=== PATIENT | female | born 1955 | race African-American/Black ===

== ENCOUNTER 2017-07-06 12:24 | Inpatient (IN) | payer MEDICAID ==
[~2017-07-06] VITALS: Ht 165.1 cm; Wt 46.2 kg
[2017-07-06] MEDS ORDERED: KETOROLAC 30 MG/1 ML ONE (12:57)
[2017-07-06 12:59] LABS: MEAN CORPUSCULAR HEMOGLOBIN 29.6 pg (27.0-34.8); MEAN CORPUSCULAR HGB CONC 32.6 g/dL (32.4-35.8); MEAN CORPUSCULAR VOLUME 90.8 fL (80-100); MEAN PLATELET VOLUME 8.4 fL (7.4-10.4); PLATELET COUNT 372 x10^3/uL (130-400); RED BLOOD COUNT 5.33 x10^6/uL (3.82-5.3); RED CELL DISTRIBUTION WIDTH 15.9 % (9.6-15.2)
[2017-07-06] MEDS ORDERED: ALBUTEROL/IPRATROPIUM 2.5MG/0.5MG, 3 ML NPPB ONE (13:00)
[2017-07-06] MEDS ORDERED: SODIUM CHLORIDE FLUSH 10ML SYR IVF ONE (13:00)
[2017-07-06] MEDS ORDERED: KETOROLAC 30 MG/1 ML IVPush ONE (13:00)
[2017-07-06 13:08] LABS: ALBUMIN 3.9 g/dL (3.4-5.0); CHLORIDE 98 mmol/L (98-107)
[2017-07-06 13:10] LABS: ANION GAP 8 mmol/L (5-15); CALCIUM 9.1 mg/dL (8.5-10.1)
[2017-07-06] MEDS ORDERED: ALBUTEROL/IPRATROPIUM 2.5MG/0.5MG, 3 ML ONE (13:13)
[2017-07-06 13:18] LABS: CREATININE 0.59 mg/dL (0.55-1.02)
[2017-07-06 13:20] LABS: TROPONIN I 0.147 ng/mL (0.000-0.045)
[2017-07-06] MEDS ORDERED: ATEN-104 PO (13:20)
[2017-07-06] MEDS ORDERED: AMLO5TAB2 PO (13:20)
[2017-07-06] MEDS ORDERED: BECL8.7A7 INH (13:20)
[2017-07-06] MEDS ORDERED: TIOT18CA INH (13:20)
[2017-07-06] MEDS ORDERED: MONT10TA9 PO (13:20)
[2017-07-06] MEDS ORDERED: ENAL20TA PO (13:20)
[2017-07-06 13:22] LABS: BASOPHILS % (AUTO) 1 % (0-1); EOSINOPHILS # (AUTO) 0.06 x10^3/uL (0-0.4); EOSINOPHILS % (AUTO) 0 % (1-7); LYMPHOCYTES # (AUTO) 1.37 x10^3/uL (1-3.4); LYMPHOCYTES % (AUTO) 7 % (22-44); MD SCAN; MONOCYTES % (AUTO) 2 % (2-9); NEUTROPHILS # (AUTO) 16.84 x10^3/uL (1.8-6.8); NEUTROPHILS % (AUTO) 90 % (42-75)
[2017-07-06] MEDS ORDERED: ASPIRIN 325 MG TABLET PO ONE (13:30)
[2017-07-06] MEDS ORDERED: ASPIRIN 325 MG TABLET ONE (13:43)
[2017-07-06] MEDS ORDERED: POTASSIUM CHLORIDE 20 MEQ TAB.ER.PRT PO ONE ×2 (15:00→18:00)
[2017-07-06] MEDS ORDERED: AZITHROMYCIN 500 MG in SODIUM CHLORIDE 0.9% 250 ML IV ONE (16:00)
[2017-07-06] MEDS ORDERED: CEFTRIAXONE PMX 1GM/50ML 50 ML IV ONE (16:00)
[2017-07-06] MEDS ORDERED: morphine SULFATE 10 MG/ML, 1ML IVPush PRN (16:30)
[2017-07-06] MEDS ORDERED: ACETAMINOPHEN 325 MG TABLET PO PRN (16:30)
[2017-07-06] MEDS ORDERED: ONDANSETRON 2MG/ML, 2ML IVPush PRN (16:30)
[2017-07-06] MEDS ORDERED: GUAIFENESIN/DM 200-20MG, 10ML UDC PO PRN (16:30)
[2017-07-06] MEDS ORDERED: ALBUTEROL SULFATE 2.5 MG/3 ML NPPB PRN (16:30)
[2017-07-06] MEDS ORDERED: DOCUSATE 100 MG CAPSULE PO PRN (16:30)
[2017-07-06] MEDS ORDERED: hydrALAzine 20 MG/ML, 1ML IVPush PRN (16:30)
[2017-07-06] MEDS ORDERED: CEFTRIAXONE PMX 1GM/50ML 0 ML ONE (16:54)
[2017-07-06] MEDS ORDERED: POTASSIUM CHLORIDE 20 MEQ TAB.ER.PRT ONE (16:55)
[2017-07-06] MEDS ORDERED: ENOXAPARIN 40 MG/0.4 ML ONE (18:06)
[2017-07-06] MEDS: ENOXAPARIN 40 MG/0.4 ML SQ SCH (18:20)
[2017-07-06 18:24] VITALS: BP 159/89
[2017-07-06] MEDS: ATORVASTATIN 20 MG TABLET PO SCH (20:04)
[2017-07-06] MEDS: NICOTINE 7 MG/24 HR PATCH.TD24 TD SCH (20:04)
[2017-07-06] MEDS: MONTELUKAST 10 MG TABLET PO SCH (20:05)
[2017-07-06] MEDS: OXYcodone IR 5MG TABLET PO PRN (20:14)
[2017-07-06 20:31] VITALS: BP 133/75
[2017-07-06] MEDS: ALBUTEROL/IPRATROPIUM 2.5MG/0.5MG, 3 ML NPPB SCH (21:00)
[2017-07-07 01:24] VITALS: BP 138/79
[2017-07-07] MEDS: ALBUTEROL/IPRATROPIUM 2.5MG/0.5MG, 3 ML NPPB SCH ×4 (03:00→21:38)
[2017-07-07 06:11] LABS: BASOPHILS # (AUTO) 0.13 x10^3/uL (0-0.1); BASOPHILS % (AUTO) 1 % (0-1); EOSINOPHILS % (AUTO) 0 % (1-7); LYMPHOCYTES # (AUTO) 0.99 x10^3/uL (1-3.4); LYMPHOCYTES % (AUTO) 7 % (22-44); MD NO; MEAN CORPUSCULAR HEMOGLOBIN 29.8 pg (27.0-34.8); MEAN CORPUSCULAR HGB CONC 32.9 g/dL (32.4-35.8); MEAN CORPUSCULAR VOLUME 90.7 fL (80-100); MEAN PLATELET VOLUME 9.1 fL (7.4-10.4); MONOCYTES # (AUTO) 0.41 x10^3/uL (0.2-0.8); MONOCYTES % (AUTO) 3 % (2-9); NEUTROPHILS # (AUTO) 12.14 x10^3/uL (1.8-6.8); NEUTROPHILS % (AUTO) 89 % (42-75); PLATELET COUNT 333 x10^3/uL (130-400); RED BLOOD COUNT 4.59 x10^6/uL (3.82-5.3); RED CELL DISTRIBUTION WIDTH 16.7 % (9.6-15.2)
[2017-07-07 06:25] LABS: ANION GAP 7 mmol/L (5-15); CALCIUM 8.6 mg/dL (8.5-10.1); CHLORIDE 107 mmol/L (98-107)
[2017-07-07 06:32] LABS: CHOL/HDL RATIO 1.8; CHOLESTEROL, TOTAL 143 mg/dL (140-239); CREATININE 0.77 mg/dL (0.55-1.02); HDL CHOL % 55 % (28-40); HDL CHOLESTEROL (DIRECT) 79 mg/dL (40-60); LDL CHOLESTEROL,CALCULATED 49 mg/dL (54-169); LDL/HDL RATIO 0.6 (0.5-3.0); TRIGLYCERIDES 77 mg/dL (50-200); VLDL CHOLESTEROL 15 mg/dL (0-25)
[2017-07-07 07:02] VITALS: BP 151/71
[2017-07-07] MEDS: ENALAPRIL 20MG TABLET PO SCH (09:00)
[2017-07-07] MEDS: ATENOLOL 50 MG TABLET PO SCH (09:00)
[2017-07-07] MEDS ORDERED: IPRATROPIUM 0.5 MG/2.5 ML INHA NPPB SCH (09:00)
[2017-07-07] MEDS: FLUTICASONE FUROATE 200MCG/INH INH SCH (09:00)
[2017-07-07] MEDS: AMLODIPINE 5 MG TABLET PO SCH (09:00)
[2017-07-07] MEDS: ASPIRIN 81 MG TABLET EC PO SCH (11:09)
[2017-07-07] MEDS: AZITHROMYCIN 500 MG TABLET PO SCH (11:09)
[2017-07-07 13:10] VITALS: BP 142/81
[2017-07-07] MEDS: ENOXAPARIN 40 MG/0.4 ML SQ SCH (16:20)
[2017-07-07] MEDS: NICOTINE 7 MG/24 HR PATCH.TD24 TD SCH (16:20)
[2017-07-07] MEDS: MONTELUKAST 10 MG TABLET PO SCH (20:21)
[2017-07-07] MEDS: ATORVASTATIN 20 MG TABLET PO SCH (20:21)
[2017-07-07 20:59] VITALS: BP 130/74
[2017-07-07] MEDS: OXYcodone IR 5MG TABLET PO PRN (22:12)
[2017-07-08 00:50] VITALS: BP 134/73
[2017-07-08 05:59] LABS: ANION GAP 8 mmol/L (5-15); CALCIUM 8.4 mg/dL (8.5-10.1); CHLORIDE 105 mmol/L (98-107)
[2017-07-08] MEDS ORDERED: ALBUTEROL/IPRATROPIUM 2.5MG/0.5MG, 3 ML NPPB SCH (06:00)
[2017-07-08 06:02] LABS: TROPONIN I 0.072 ng/mL (0.000-0.045)
[2017-07-08 06:03] LABS: CREATININE 0.94 mg/dL (0.55-1.02)
[2017-07-08] MEDS: ASPIRIN 81 MG TABLET EC PO SCH (06:17)
[2017-07-08 07:22] VITALS: BP 133/75
[2017-07-08] MEDS: AZITHROMYCIN 500 MG TABLET PO SCH (08:51)
[2017-07-08] MEDS: ENALAPRIL 20MG TABLET PO SCH (08:52)
[2017-07-08] MEDS: AMLODIPINE 5 MG TABLET PO SCH (08:52)
[2017-07-08] MEDS: ATENOLOL 50 MG TABLET PO SCH (08:52)
[2017-07-08] MEDS: FLUTICASONE FUROATE 200MCG/INH INH SCH (09:00)
[2017-07-08] MEDS ORDERED: ONDANSETRON ODT 4 MG ONE (11:45)
[2017-07-08 12:42] VITALS: BP 129/66
[2017-07-08] MEDS ORDERED: PRED20TA PO (16:30)
[2017-07-08] MEDS ORDERED: AZIT500T5 PO (16:30)
[2017-07-08] MEDS ORDERED: ASPI-621 PO (16:30)
[2017-07-08] MEDS ORDERED: ATOR20TA9 PO (16:30)
[2017-07-08] MEDS ORDERED: ALBU18HF INH (16:32)
== END 2017-07-08 18:20 | disposition home or self-care (01) | DRG 191 ==
LOC: ED 12:48 → EDIP 16:05 → 5SO 17:44
PROVIDERS: ADMIT Internal Medicine; ATTEND Internal Medicine
DX: J44.0 Chronic obstructive pulmonary disease with (acute) lower respiratory infection (principal); I24.8 Other forms of acute ischemic heart disease; I07.1 Rheumatic tricuspid insufficiency; J44.1 Chronic obstructive pulmonary disease with (acute) exacerbation; E11.9 Type 2 diabetes mellitus without complications; E87.6 Hypokalemia; I25.10 Atherosclerotic heart disease of native coronary artery without angina pectoris; F17.210 Nicotine dependence, cigarettes, uncomplicated; I10 Essential (primary) hypertension; I35.1 Nonrheumatic aortic (valve) insufficiency; M19.90 Unspecified osteoarthritis, unspecified site; J20.9 Acute bronchitis, unspecified; Z59.0 Homelessness; Z79.82 Long term (current) use of aspirin; I25.2 Old myocardial infarction; Z79.899 Other long term (current) drug therapy; Z83.2 Family history of diseases of the blood and blood-forming organs and certain disorders involving the immune mechanism; Z83.3 Family history of diabetes mellitus; Z86.718 Personal history of other venous thrombosis and embolism
CPT/HCPCS: 36415; 71045; 80048; 80061; 82040; 83735; 84100; 84484; 85025; 87040; 93005; 93306; 94640; 96374; J0456; J0696; J1650; J1885; J2405; J7620; J7050; J7512

== ENCOUNTER 2017-07-19 17:43 | Inpatient (IN) | payer MEDICAID ==
[~2017-07-19] VITALS: Ht 165.1 cm; Wt 54.8 kg
[~2017-07-19 17:43] MED LIST: ALBU18HF INH; AMLO5TAB2 PO; ASPI-621 PO; ATEN-104 PO; ATOR20TA9 PO; AZIT500T5 PO; BECL8.7A7 INH; ENAL20TA PO; MONT10TA9 PO; PRED20TA PO; TIOT18CA INH
[2017-07-19] MEDS ORDERED: ASPIRIN 81 MG TABLET CHEW PO ONE (18:30)
[2017-07-19 19:47] LABS: BASOPHILS % (AUTO) 0 % (0-1); EOSINOPHILS # (AUTO) 0.01 x10^3/uL (0-0.4); EOSINOPHILS % (AUTO) 0 % (1-7); LYMPHOCYTES # (AUTO) 0.86 x10^3/uL (1-3.4); LYMPHOCYTES % (AUTO) 9 % (22-44); MD NO; MEAN CORPUSCULAR HEMOGLOBIN 29.4 pg (27.0-34.8); MEAN CORPUSCULAR HGB CONC 32.5 g/dL (32.4-35.8); MEAN CORPUSCULAR VOLUME 90.2 fL (80-100); MEAN PLATELET VOLUME 8.5 fL (7.4-10.4); MONOCYTES # (AUTO) 0.39 x10^3/uL (0.2-0.8); MONOCYTES % (AUTO) 4 % (2-9); NEUTROPHILS # (AUTO) 7.91 x10^3/uL (1.8-6.8); NEUTROPHILS % (AUTO) 86 % (42-75); PLATELET COUNT 254 x10^3/uL (130-400); RED BLOOD COUNT 4.99 x10^6/uL (3.82-5.3); RED CELL DISTRIBUTION WIDTH 16.6 % (9.6-15.2)
[2017-07-19 20:00] LABS: ALANINE AMINOTRANSFERASE 40 U/L (12-78); ALBUMIN 3.4 g/dL (3.4-5.0); ANION GAP 7 mmol/L (5-15); CALCIUM 8.2 mg/dL (8.5-10.1); CHLORIDE 99 mmol/L (98-107)
[2017-07-19] MEDS ORDERED: ATENOLOL 50 MG TABLET PO ONE (20:00)
[2017-07-19] MEDS ORDERED: LEVOFLOXACIN 750 MG TABLET PO ONE (20:00)
[2017-07-19 20:05] LABS: ALKALINE PHOSPHATASE 52 U/L (45-117); BILIRUBIN,TOTAL 0.4 mg/dL (0.2-1.0); CREATININE 0.78 mg/dL (0.55-1.02); TOTAL PROTEIN 7.3 g/dL (6.4-8.2)
[2017-07-19 20:12] LABS: TROPONIN I 0.171 ng/mL (0.000-0.045)
[2017-07-19] MEDS ORDERED: ASPIRIN 81 MG TABLET CHEW ONE (20:33)
[2017-07-19] MEDS ORDERED: LEVOFLOXACIN 750 MG TABLET ONE (20:33)
[2017-07-19] MEDS ORDERED: ENALAPRIL 20MG TABLET PO ONE (21:00)
[2017-07-19 21:20] VITALS: BP 162/91
[2017-07-20] MEDS ORDERED: SODIUM CHLORIDE 0.9% 1,000 ML IV SCH (00:13)
[2017-07-20 00:29] VITALS: BP 133/78
[2017-07-20] MEDS ORDERED: POLYETHYLENE GLYCOL 17 GM PACKET PO PRN (00:30)
[2017-07-20] MEDS ORDERED: morphine SULFATE 10 MG/ML, 1ML IVPush PRN (00:30)
[2017-07-20] MEDS ORDERED: DOCUSATE 100 MG CAPSULE PO PRN (00:30)
[2017-07-20] MEDS ORDERED: BISACODYL 10 MG SUPP PR PRN (00:30)
[2017-07-20] MEDS ORDERED: ENALAPRILAT 1.25 MG/ML, 2ML IVPush PRN (00:30)
[2017-07-20] MEDS ORDERED: POTASSIUM CHLORIDE 40 MEQ in SODIUM CHLORIDE 0.9% 500 ML IV ONE (00:30)
[2017-07-20] MEDS ORDERED: ONDANSETRON 2MG/ML, 2ML IVPush PRN (00:30)
[2017-07-20] MEDS ORDERED: ACETAMINOPHEN 325 MG TABLET PO PRN (00:30)
[2017-07-20] MEDS ORDERED: hydrALAzine 20 MG/ML, 1ML IVPush PRN (00:30)
[2017-07-20] MEDS: ALBUTEROL/IPRATROPIUM 2.5MG/0.5MG, 3 ML NPPB SCH ×5 (00:39→20:54)
[2017-07-20] MEDS: CEFTRIAXONE PMX 1GM/50ML 50 ML IV SCH (00:52)
[2017-07-20] MEDS: OXYcodone IR 5MG TABLET PO PRN ×2 (01:02→20:35)
[2017-07-20] MEDS: HEPARIN 5,000 UNITS/ML, 1ML SQ SCH ×3 (01:03→14:31)
[2017-07-20 03:23] LABS: TROPONIN I 0.172 ng/mL (0.000-0.045)
[2017-07-20 03:27] LABS: HEMOGLOBIN A1C 6.5 % (4.2-6.3)
[2017-07-20 03:30] LABS: FREE T4 (FREE THYROXINE) 1.22 ng/dL (0.76-1.46); THYROID STIMULATING HORMONE 0.021 mIU/L (0.358-3.740)
[2017-07-20] MEDS: ASPIRIN 325 MG TABLET EC PO SCH (05:30)
[2017-07-20 05:49] LABS: MICROSCOPIC AUTO
[2017-07-20 05:53] LABS: CULTURE INDICATED? NO
[2017-07-20 07:46] VITALS: BP 153/85
[2017-07-20] MEDS ORDERED: POTASSIUM CHLORIDE 20 MEQ TAB.ER.PRT PO ONE (08:00)
[2017-07-20] MEDS: AMLODIPINE 5 MG TABLET PO SCH (08:22)
[2017-07-20] MEDS: ENALAPRIL 20MG TABLET PO SCH (08:22)
[2017-07-20] MEDS: ATENOLOL 50 MG TABLET PO SCH (08:23)
[2017-07-20] MEDS: FLUTICASONE/VILANTEROL 200-25MCG/INH INH SCH (08:23)
[2017-07-20] MEDS: DOXYCYCLINE 100MG TABLET PO SCH ×2 (08:23→20:23)
[2017-07-20] MEDS ORDERED: REGADENOSON 0.4 MG/5 ML SYRINGE ONE (08:55)
[2017-07-20 09:27] LABS: TROPONIN I 0.166 ng/mL (0.000-0.045)
[2017-07-20 12:30] VITALS: BP 128/76
[2017-07-20] MEDS: methylPREDNISolone SOD SUCC 125 MG/2 ML IVPush SCH ×2 (14:30→20:23)
[2017-07-20 18:37] VITALS: BP 141/75
[2017-07-20] MEDS: MONTELUKAST 10 MG TABLET PO SCH (20:23)
[2017-07-20] MEDS: ATORVASTATIN 20 MG TABLET PO SCH (20:23)
[2017-07-21] MEDS: HEPARIN 5,000 UNITS/ML, 1ML SQ SCH ×3 (00:15→18:40)
[2017-07-21] MEDS: CEFTRIAXONE PMX 1GM/50ML 50 ML IV SCH (00:15)
[2017-07-21 00:58] VITALS: BP 122/71
[2017-07-21] MEDS: methylPREDNISolone SOD SUCC 125 MG/2 ML IVPush SCH ×4 (03:11→20:17)
[2017-07-21 05:03] LABS: BASOPHILS % (AUTO) 0 % (0-1); EOSINOPHILS % (AUTO) 0 % (1-7); LYMPHOCYTES # (AUTO) 0.45 x10^3/uL (1-3.4); LYMPHOCYTES % (AUTO) 12 % (22-44); MD NO; MEAN CORPUSCULAR HEMOGLOBIN 29.9 pg (27.0-34.8); MEAN CORPUSCULAR HGB CONC 33.1 g/dL (32.4-35.8); MEAN CORPUSCULAR VOLUME 90.3 fL (80-100); MEAN PLATELET VOLUME 8.8 fL (7.4-10.4); MONOCYTES # (AUTO) 0.13 x10^3/uL (0.2-0.8); MONOCYTES % (AUTO) 3 % (2-9); NEUTROPHILS # (AUTO) 3.14 x10^3/uL (1.8-6.8); NEUTROPHILS % (AUTO) 85 % (42-75); PLATELET COUNT 205 x10^3/uL (130-400); RED BLOOD COUNT 4.12 x10^6/uL (3.82-5.3); RED CELL DISTRIBUTION WIDTH 16.9 % (9.6-15.2)
[2017-07-21 05:12] LABS: ALBUMIN 2.5 g/dL (3.4-5.0); ANION GAP 10 mmol/L (5-15); CHLORIDE 104 mmol/L (98-107)
[2017-07-21 05:18] LABS: ALANINE AMINOTRANSFERASE 27 U/L (12-78); ALKALINE PHOSPHATASE 39 U/L (45-117); BILIRUBIN,TOTAL 0.1 mg/dL (0.2-1.0); CALCIUM 7.9 mg/dL (8.5-10.1); CHOL/HDL RATIO 1.9; CHOLESTEROL, TOTAL 148 mg/dL (140-239); CREATININE 0.82 mg/dL (0.55-1.02); HDL CHOL % 53 % (28-40); HDL CHOLESTEROL (DIRECT) 79 mg/dL (40-60); LDL CHOLESTEROL,CALCULATED 56 mg/dL (54-169); LDL/HDL RATIO 0.7 (0.5-3.0); TOTAL PROTEIN 5.9 g/dL (6.4-8.2); TRIGLYCERIDES 66 mg/dL (50-200); VLDL CHOLESTEROL 13 mg/dL (0-25)
[2017-07-21] MEDS: ASPIRIN 325 MG TABLET EC PO SCH (05:23)
[2017-07-21 06:46] VITALS: BP 151/77
[2017-07-21] MEDS: ENALAPRIL 20MG TABLET PO SCH (09:18)
[2017-07-21] MEDS: AMLODIPINE 5 MG TABLET PO SCH (09:18)
[2017-07-21] MEDS: DOXYCYCLINE 100MG TABLET PO SCH ×2 (09:18→20:17)
[2017-07-21] MEDS: ATENOLOL 50 MG TABLET PO SCH (09:18)
[2017-07-21] MEDS: ALBUTEROL/IPRATROPIUM 2.5MG/0.5MG, 3 ML NPPB SCH ×3 (09:48→20:25)
[2017-07-21] MEDS: NICOTINE 21 MG/24 HR PATCH.TD24 TD SCH (10:32)
[2017-07-21] MEDS: FLUTICASONE/VILANTEROL 200-25MCG/INH INH SCH (10:32)
[2017-07-21 14:32] VITALS: BP 143/77
[2017-07-21 18:57] VITALS: BP 146/73
[2017-07-21] MEDS: ATORVASTATIN 20 MG TABLET PO SCH (20:17)
[2017-07-21] MEDS: OXYcodone IR 5MG TABLET PO PRN (20:18)
[2017-07-21] MEDS: MONTELUKAST 10 MG TABLET PO SCH (20:18)
[2017-07-22] MEDS: CEFTRIAXONE PMX 1GM/50ML 50 ML IV SCH (00:31)
[2017-07-22] MEDS: HEPARIN 5,000 UNITS/ML, 1ML SQ SCH ×3 (00:32→18:18)
[2017-07-22 00:47] VITALS: BP 158/83
[2017-07-22 02:44] LABS: CLOSTRIDIUM DIFFICILE ANTIGEN NEGATIVE; CLOSTRIDIUM DIFFICILE TOXIN NEGATIVE (Negative)
[2017-07-22] MEDS: methylPREDNISolone SOD SUCC 125 MG/2 ML IVPush SCH ×4 (03:27→20:49)
[2017-07-22] MEDS: ASPIRIN 325 MG TABLET EC PO SCH (06:25)
[2017-07-22] MEDS: ALBUTEROL/IPRATROPIUM 2.5MG/0.5MG, 3 ML NPPB SCH ×3 (06:55→20:32)
[2017-07-22 08:23] VITALS: BP 161/85
[2017-07-22] MEDS: NICOTINE 21 MG/24 HR PATCH.TD24 TD SCH (09:53)
[2017-07-22] MEDS: DOXYCYCLINE 100MG TABLET PO SCH ×2 (09:53→20:49)
[2017-07-22] MEDS: AMLODIPINE 5 MG TABLET PO SCH (09:53)
[2017-07-22] MEDS: OXYcodone IR 5MG TABLET PO PRN ×2 (09:53→16:24)
[2017-07-22] MEDS: ATENOLOL 50 MG TABLET PO SCH (09:53)
[2017-07-22] MEDS: GUAIFENESIN 200 MG TABLET PO SCH ×3 (09:53→20:49)
[2017-07-22] MEDS: ENALAPRIL 20MG TABLET PO SCH (09:53)
[2017-07-22] MEDS ORDERED: PNEUMOCOCCAL 23 VACCINE IM-VACC ONE (11:00)
[2017-07-22] MEDS: FLUTICASONE/VILANTEROL 200-25MCG/INH INH SCH (12:53)
[2017-07-22 13:10] VITALS: BP 153/81
[2017-07-22 20:34] VITALS: BP 139/82
[2017-07-22] MEDS: ATORVASTATIN 20 MG TABLET PO SCH (20:49)
[2017-07-22] MEDS: MONTELUKAST 10 MG TABLET PO SCH (20:49)
[2017-07-23] MEDS: CEFTRIAXONE PMX 1GM/50ML 50 ML IV SCH (00:30)
[2017-07-23 00:36] VITALS: BP 167/88
[2017-07-23] MEDS: HEPARIN 5,000 UNITS/ML, 1ML SQ SCH ×3 (02:00→14:40)
[2017-07-23] MEDS: ALBUTEROL/IPRATROPIUM 2.5MG/0.5MG, 3 ML NPPB SCH ×3 (02:42→11:51)
[2017-07-23] MEDS: methylPREDNISolone SOD SUCC 125 MG/2 ML IVPush SCH ×4 (03:05→20:25)
[2017-07-23] MEDS: NICOTINE 21 MG/24 HR PATCH.TD24 TD SCH (08:14)
[2017-07-23] MEDS: GUAIFENESIN 200 MG TABLET PO SCH ×3 (08:15→20:27)
[2017-07-23] MEDS: ASPIRIN 325 MG TABLET EC PO SCH (08:15)
[2017-07-23] MEDS: FLUTICASONE/VILANTEROL 200-25MCG/INH INH SCH (08:15)
[2017-07-23] MEDS: ATENOLOL 50 MG TABLET PO SCH (08:15)
[2017-07-23] MEDS: ENALAPRIL 20MG TABLET PO SCH (08:15)
[2017-07-23] MEDS: DOXYCYCLINE 100MG TABLET PO SCH ×2 (08:15→20:27)
[2017-07-23] MEDS: AMLODIPINE 5 MG TABLET PO SCH (08:15)
[2017-07-23 08:45] VITALS: BP 157/82
[2017-07-23 11:07] VITALS: BP 158/79
[2017-07-23 14:13] VITALS: BP 164/82
[2017-07-23] MEDS: OXYcodone IR 5MG TABLET PO PRN (16:44)
[2017-07-23 19:20] VITALS: BP 140/75
[2017-07-23] MEDS: ALBUTEROL/IPRATROPIUM 2.5MG/0.5MG, 3 ML NPPB PRN (19:25)
[2017-07-23] MEDS: MONTELUKAST 10 MG TABLET PO SCH (20:26)
[2017-07-23] MEDS: ATORVASTATIN 20 MG TABLET PO SCH (20:26)
[2017-07-24] MEDS: CEFTRIAXONE PMX 1GM/50ML 50 ML IV SCH (00:22)
[2017-07-24] MEDS: HEPARIN 5,000 UNITS/ML, 1ML SQ SCH ×2 (02:00→08:39)
[2017-07-24 02:17] VITALS: BP 158/71
[2017-07-24] MEDS: methylPREDNISolone SOD SUCC 125 MG/2 ML IVPush SCH ×3 (02:21→14:13)
[2017-07-24] MEDS: ALBUTEROL/IPRATROPIUM 2.5MG/0.5MG, 3 ML NPPB PRN (03:14)
[2017-07-24] MEDS: ASPIRIN 325 MG TABLET EC PO SCH (05:51)
[2017-07-24 07:51] VITALS: BP 169/83
[2017-07-24] MEDS: DOXYCYCLINE 100MG TABLET PO SCH (08:23)
[2017-07-24] MEDS: GUAIFENESIN 200 MG TABLET PO SCH (08:23)
[2017-07-24] MEDS: NICOTINE 21 MG/24 HR PATCH.TD24 TD SCH (08:23)
[2017-07-24] MEDS: ENALAPRIL 20MG TABLET PO SCH (08:23)
[2017-07-24] MEDS: ATENOLOL 50 MG TABLET PO SCH (08:24)
[2017-07-24] MEDS: AMLODIPINE 5 MG TABLET PO SCH (08:39)
[2017-07-24] MEDS ORDERED: IBUPROFEN 200 MG TABLET PO PRN (10:30)
[2017-07-24] MEDS ORDERED: IPRA3AMP NPPB (11:52)
[2017-07-24] MEDS ORDERED: IBUP-1484 PO (11:52)
[2017-07-24] MEDS ORDERED: NICO-487 TD (11:52)
[2017-07-24] MEDS ORDERED: CEFD300C37 PO (11:52)
[2017-07-24] MEDS ORDERED: PRED10TA14 PO (11:52)
[2017-07-24] MEDS ORDERED: GUAI200T3 PO (11:52)
[2017-07-24] MEDS ORDERED: DOXY100C15 PO (11:52)
[2017-07-24] MEDS ORDERED: IBUP-1222 PO (11:52)
[2017-07-24 12:21] VITALS: BP 156/62
[2017-07-24] MEDS: FLUTICASONE/VILANTEROL 200-25MCG/INH INH SCH (14:06)
[2017-07-24 14:14] VITALS: BP 157/88
== END 2017-07-24 15:19 | disposition home or self-care (01) | DRG 190 ==
LOC: ED 20:19 → EDIP 20:20 → ED 20:40 → 5SO 21:26 → 4NOR 07-23 10:56
PROVIDERS: ADMIT Internal Medicine; ATTEND Internal Medicine
DX: J44.0 Chronic obstructive pulmonary disease with (acute) lower respiratory infection (principal); J18.9 Pneumonia, unspecified organism; I16.9 Hypertensive crisis, unspecified; J44.1 Chronic obstructive pulmonary disease with (acute) exacerbation; E05.90 Thyrotoxicosis, unspecified without thyrotoxic crisis or storm; E78.5 Hyperlipidemia, unspecified; E87.6 Hypokalemia; F17.210 Nicotine dependence, cigarettes, uncomplicated; I10 Essential (primary) hypertension; I25.10 Atherosclerotic heart disease of native coronary artery without angina pectoris; Z59.0 Homelessness; Z83.2 Family history of diseases of the blood and blood-forming organs and certain disorders involving the immune mechanism; Z83.3 Family history of diabetes mellitus; Z79.899 Other long term (current) drug therapy; Z79.82 Long term (current) use of aspirin
CPT/HCPCS: 36415; 71045; 78452; 80053; 80061; 81001; 83036; 83735; 84100; 84439; 84443; 84484; 85025; 87040; 87070; 87205; 87324; 90732; 93005; 93017; 94640; 99285; J0696; J1644; J2785; J3480; J7620; A9502; C9898; J2930; J7030; J7040

== ENCOUNTER 2017-08-13 08:21 | Inpatient (IN) | payer MEDICAID ==
[~2017-08-13] VITALS: Ht 165.1 cm; Wt 52.8 kg
[~2017-08-13 08:21] MED LIST changes: +CEFD300C37 PO; +DOXY100C15 PO; +GUAI200T3 PO; +IBUP-1222 PO; +IBUP-1484 PO; +IPRA3AMP NPPB; +NICO-487 TD; +PRED10TA14 PO
[2017-08-13 08:48] LABS: BASOPHILS # (AUTO) 0.02 x10^3/uL (0-0.1); BASOPHILS % (AUTO) 0 % (0-1); EOSINOPHILS # (AUTO) 0.09 x10^3/uL (0-0.4); EOSINOPHILS % (AUTO) 1 % (1-7); LYMPHOCYTES # (AUTO) 1.07 x10^3/uL (1-3.4); LYMPHOCYTES % (AUTO) 13 % (22-44); MD NO; MEAN CORPUSCULAR HEMOGLOBIN 29.8 pg (27.0-34.8); MEAN CORPUSCULAR VOLUME 90.3 fL (80-100); MEAN PLATELET VOLUME 8.2 fL (7.4-10.4); MONOCYTES # (AUTO) 0.54 x10^3/uL (0.2-0.8); MONOCYTES % (AUTO) 7 % (2-9); NEUTROPHILS % (AUTO) 79 % (42-75); PLATELET COUNT 263 x10^3/uL (130-400); RED BLOOD COUNT 4.18 x10^6/uL (3.82-5.3)
[2017-08-13 09:00] LABS: ALBUMIN 3.2 g/dL (3.4-5.0); ANION GAP 5 mmol/L (5-15); CALCIUM 7.8 mg/dL (8.5-10.1); CHLORIDE 105 mmol/L (98-107)
[2017-08-13 09:05] LABS: CREATININE 0.85 mg/dL (0.55-1.02)
[2017-08-13 09:07] LABS: TROPONIN I 0.212 ng/mL (0.000-0.045)
[2017-08-13] MEDS ORDERED: HEPARIN 25,000 UNITS/500ML PMX 500 ML ONE (09:52)
[2017-08-13] MEDS ORDERED: HEPARIN 5,000 UNITS/ML, 1ML ONE (09:52)
[2017-08-13] MEDS ORDERED: HEPARIN 5,000 UNITS/ML, 1ML IV ONE (10:00)
[2017-08-13] MEDS ORDERED: HEPARIN 5,000 UNITS/ML, 1ML IV PRN (10:00)
[2017-08-13] MEDS ORDERED: HEPARIN 25,000 UNITS/500ML PMX 500 ML IV PRN (10:00)
[2017-08-13] MEDS ORDERED: CEPH-376 PO (10:02)
[2017-08-13 12:13] VITALS: BP 158/89
[2017-08-13] MEDS ORDERED: SODIUM CHLORIDE 0.9% 1,000 ML IV SCH (15:28)
[2017-08-13] MEDS ORDERED: ONDANSETRON 2MG/ML, 2ML IVPush PRN (15:30)
[2017-08-13] MEDS ORDERED: FLUTICASONE/VILANTEROL 200-25MCG/INH INH SCH (15:30)
[2017-08-13] MEDS ORDERED: POLYETHYLENE GLYCOL 17 GM PACKET PO PRN (15:30)
[2017-08-13] MEDS ORDERED: OXYcodone IR 5MG TABLET PO PRN (15:30)
[2017-08-13] MEDS ORDERED: BISACODYL 10 MG SUPP PR PRN (15:30)
[2017-08-13] MEDS ORDERED: ALBUTEROL SULFATE INH PRN (15:30)
[2017-08-13] MEDS ORDERED: ACETAMINOPHEN 325 MG TABLET PO PRN (15:30)
[2017-08-13] MEDS ORDERED: ENALAPRILAT 1.25 MG/ML, 2ML IVPush PRN (15:30)
[2017-08-13] MEDS ORDERED: hydrALAzine 20 MG/ML, 1ML IVPush PRN (15:30)
[2017-08-13] MEDS ORDERED: NICOTINE 7 MG/24 HR PATCH.TD24 TD SCH (15:30)
[2017-08-13] MEDS ORDERED: LABETALOL 5MG/ML, 20ML IVPush PRN (15:30)
[2017-08-13] MEDS ORDERED: ALBUTEROL/IPRATROPIUM 2.5MG/0.5MG, 3 ML NPPB PRN (15:30)
[2017-08-13] MEDS ORDERED: morphine SULFATE 10 MG/ML, 1ML IVPush PRN (15:30)
[2017-08-13] MEDS: HEPARIN 5,000 UNITS/ML, 1ML SQ SCH (15:42)
[2017-08-13] MEDS ORDERED: IPRATROPIUM 0.5 MG/2.5 ML INHA NPPB SCH ×2 (16:00)
[2017-08-13] MEDS: IBUPROFEN 200 MG TABLET PO PRN (16:02)
[2017-08-13] MEDS: [UNRECOGNIZED DRUG - OTHER] MC SCH (16:22)
[2017-08-13 18:31] VITALS: BP 176/90
[2017-08-13 19:35] LABS: MICROSCOPIC NOT IND
[2017-08-13 19:38] LABS: TROPONIN I 0.194 ng/mL (0.000-0.045)
[2017-08-13 19:39] LABS: CULTURE INDICATED? NO
[2017-08-13] MEDS ORDERED: MONTELUKAST 10 MG TABLET PO SCH (21:00)
[2017-08-13] MEDS ORDERED: ATORVASTATIN 20 MG TABLET PO SCH (21:00)
[2017-08-14 01:02] LABS: MEAN CORPUSCULAR HEMOGLOBIN 29.8 pg (27.0-34.8); MEAN CORPUSCULAR HGB CONC 32.8 g/dL (32.4-35.8); MEAN PLATELET VOLUME 8.3 fL (7.4-10.4); PLATELET COUNT 247 x10^3/uL (130-400); RED BLOOD COUNT 3.96 x10^6/uL (3.82-5.3); RED CELL DISTRIBUTION WIDTH 18.1 % (9.6-15.2)
[2017-08-14 01:12] LABS: ALANINE AMINOTRANSFERASE 19 U/L (12-78); ALBUMIN 2.6 g/dL (3.4-5.0); ANION GAP 6 mmol/L (5-15); CALCIUM 8.1 mg/dL (8.5-10.1); CHLORIDE 109 mmol/L (98-107)
[2017-08-14 01:13] LABS: TROPONIN I 0.181 ng/mL (0.000-0.045)
[2017-08-14 01:14] LABS: ALKALINE PHOSPHATASE 54 U/L (45-117); BILIRUBIN,TOTAL 0.4 mg/dL (0.2-1.0); CREATININE 0.65 mg/dL (0.55-1.02); TOTAL PROTEIN 5.6 g/dL (6.4-8.2)
[2017-08-14 01:15] LABS: MD YES
[2017-08-14 01:21] LABS: EOS#(MANUAL) 0.18 x10^3/uL (0.0-0.4); EOS% (MANUAL) 3 % (1-7); LYMPH#(MANUAL) 1.62 x10^3/uL (1-3.4); LYMPHS% (MANUAL) 27 % (22-44); MONOS#(MANUAL) 0.24 x10^3/uL (0.3-2.7); MONOS% (MANUAL) 4 % (2-9); SEG#(MANUAL) 3.96 x10^3/uL (1.8-6.8); SEGS% (MANUAL) 66 % (42-75)
[2017-08-14 01:22] LABS: <PLATELET ESTIMATE> ADEQUATE; ANISOCYTOSIS 1+
[2017-08-14 01:23] LABS: <PLT MORPHOLOGY> NORMAL PLT MORPH
[2017-08-14 01:40] VITALS: BP 158/80
[2017-08-14] MEDS: IBUPROFEN 200 MG TABLET PO PRN ×2 (01:46→08:38)
[2017-08-14] MEDS ORDERED: ASPIRIN 81 MG TABLET EC PO SCH (06:00)
[2017-08-14] MEDS ORDERED: ASPIRIN 325 MG TABLET EC PO SCH (06:00)
[2017-08-14 06:40] VITALS: BP 181/91
[2017-08-14] MEDS ORDERED: SODIUM CHLORIDE 0.9% 1,000 ML IV ONE (07:11)
[2017-08-14] MEDS: [UNRECOGNIZED DRUG - OTHER] MC SCH (07:18)
[2017-08-14 07:32] LABS: INTERNATIONAL NORMALIZED RATIO 0.97 (0.93-1.1); PROTHROMBIN TIME 10.1 Seconds (9.6-11.5)
[2017-08-14] MEDS: HEPARIN 5,000 UNITS/ML, 1ML SQ SCH ×3 (08:00→08:38)
[2017-08-14] MEDS ORDERED: KETOROLAC 30 MG/1 ML IVPush ONE (08:30)
[2017-08-14] MEDS ORDERED: TEMPLATE NON-FORMULARY MED. (Beclomethasone Dipropionate 80MCG (Qvar 80MCG) 1 PUFF(S)) INH SCH (09:00)
[2017-08-14] MEDS ORDERED: ENALAPRIL 20MG TABLET PO SCH (09:00)
[2017-08-14] MEDS ORDERED: AMLODIPINE 5 MG TABLET PO SCH (09:00)
[2017-08-14] MEDS ORDERED: ATENOLOL 50 MG TABLET PO SCH (09:00)
[2017-08-14] MEDS ORDERED: SENNA/DOCUSATE TABLET PO SCH (09:00)
[2017-08-14] MEDS ORDERED: ENAL20TA PO (13:06)
[2017-08-14] MEDS ORDERED: ACET325T14 PO (13:06)
[2017-08-14] MEDS ORDERED: AMOX1TAB12 PO (13:06)
[2017-08-14] MEDS ORDERED: MONT10TA9 PO (13:06)
[2017-08-14] MEDS ORDERED: ASPI-621 PO (13:06)
[2017-08-14] MEDS ORDERED: ATEN50TA41 PO (13:06)
[2017-08-14] MEDS ORDERED: ATOR20TA9 PO (13:06)
[2017-08-14] MEDS ORDERED: FLUT1BLS INH (13:06)
[2017-08-14] MEDS ORDERED: AMLO5TAB2 PO (13:06)
[2017-08-14] MEDS ORDERED: IPRA4AER INH ×2 (13:06→13:16)
[2017-08-14] MEDS ORDERED: IBUP-1484 PO (13:06)
[2017-08-14] MEDS ORDERED: GUAI200T3 PO (13:06)
== END 2017-08-14 15:25 | disposition home or self-care (01) | DRG 305 ==
LOC: ED 08:57 → EDIP 10:03 → 5SO 11:32 → DCLOUNGE 08-14 15:06
PROVIDERS: ADMIT Internal Medicine Cardiovascular Disease; ATTEND Internal Medicine Cardiovascular Disease
DX: I10 Essential (primary) hypertension (principal); E78.5 Hyperlipidemia, unspecified; F17.210 Nicotine dependence, cigarettes, uncomplicated; I25.2 Old myocardial infarction; J44.9 Chronic obstructive pulmonary disease, unspecified; M19.90 Unspecified osteoarthritis, unspecified site; Z59.0 Homelessness; Z83.2 Family history of diseases of the blood and blood-forming organs and certain disorders involving the immune mechanism; T63.301A Toxic effect of unspecified spider venom, accidental (unintentional), initial encounter; Y92.89 Other specified places as the place of occurrence of the external cause; Z83.3 Family history of diabetes mellitus; Z91.14 Patient's other noncompliance with medication regimen; Z79.82 Long term (current) use of aspirin; Z79.899 Other long term (current) drug therapy; Z71.6 Tobacco abuse counseling
CPT/HCPCS: 36415; 71045; 80048; 80053; 81003; 82040; 83735; 83880; 84484; 85025; 85520; 85610; 93005; 96365; 96375; J1644; J1885; J7030

== ENCOUNTER 2017-09-17 02:21 | Inpatient (IN) | payer MEDICAID ==
[~2017-09-17] VITALS: Ht 165.1 cm; Wt 53.1 kg
[~2017-09-17 02:21] MED LIST changes: +ACET325T14 PO; +AMOX1TAB12 PO; +ATEN50TA41 PO; +CEPH-376 PO; +FLUT1BLS INH; +IPRA4AER INH
[2017-09-17 02:51] LABS: BASOPHILS # (AUTO) 0.03 x10^3/uL (0-0.1); BASOPHILS % (AUTO) 0 % (0-1); EOSINOPHILS # (AUTO) 0.22 x10^3/uL (0-0.4); EOSINOPHILS % (AUTO) 3 % (1-7); LYMPHOCYTES # (AUTO) 1.99 x10^3/uL (1-3.4); LYMPHOCYTES % (AUTO) 22 % (22-44); MD NO; MEAN CORPUSCULAR HEMOGLOBIN 29.5 pg (27.0-34.8); MEAN CORPUSCULAR HGB CONC 32.9 g/dL (32.4-35.8); MEAN CORPUSCULAR VOLUME 89.9 fL (80-100); MEAN PLATELET VOLUME 9.1 fL (7.4-10.4); MONOCYTES # (AUTO) 0.75 x10^3/uL (0.2-0.8); MONOCYTES % (AUTO) 9 % (2-9); NEUTROPHILS # (AUTO) 5.89 x10^3/uL (1.8-6.8); NEUTROPHILS % (AUTO) 66 % (42-75); PLATELET COUNT 251 x10^3/uL (130-400); RED BLOOD COUNT 4.57 x10^6/uL (3.82-5.3); RED CELL DISTRIBUTION WIDTH 16.6 % (9.6-15.2)
[2017-09-17 03:01] LABS: ALANINE AMINOTRANSFERASE 34 U/L (12-78); ALBUMIN 3.6 g/dL (3.4-5.0); ANION GAP 9 mmol/L (5-15); CALCIUM 8.3 mg/dL (8.5-10.1); CHLORIDE 101 mmol/L (98-107); CREATININE 0.88 mg/dL (0.55-1.02)
[2017-09-17 03:06] LABS: ALKALINE PHOSPHATASE 69 U/L (45-117); BILIRUBIN,TOTAL 0.3 mg/dL (0.2-1.0); T4 (THYROXINE) 13.1 mcg/dL (4.8-13.9); TOTAL PROTEIN 7.1 g/dL (6.4-8.2)
[2017-09-17 03:12] LABS: THYROID STIMULATING HORMONE < 0.005 mIU/L (0.358-3.740)
[2017-09-17 03:20] LABS: MICROSCOPIC NOT IND
[2017-09-17] MEDS ORDERED: ASPIRIN 81 MG TABLET CHEW ONE (03:23)
[2017-09-17] MEDS ORDERED: LABETALOL 5MG/ML, 20ML ONE (03:23)
[2017-09-17] MEDS ORDERED: POTASSIUM CHLORIDE 20 MEQ TAB.ER.PRT ONE (03:23)
[2017-09-17] MEDS ORDERED: MORPHINE SULFATE 4 MG/ML, 1ML ONE ×2 (03:23→03:43)
[2017-09-17] MEDS ORDERED: NITROGLYCERIN OINT 2%, 1GM TP ONE ×2 (03:23→03:30)
[2017-09-17] MEDS ORDERED: ASPIRIN 81 MG TABLET CHEW PO ONE (03:30)
[2017-09-17] MEDS ORDERED: POTASSIUM CHLORIDE 20 MEQ TAB.ER.PRT PO ONE (03:30)
[2017-09-17] MEDS ORDERED: LABETALOL 5MG/ML, 20ML IVPush ONE (03:30)
[2017-09-17] MEDS ORDERED: SODIUM CHLORIDE FLUSH 10ML SYR IVF ONE (03:30)
[2017-09-17 03:39] LABS: CULTURE INDICATED? NO
[2017-09-17] MEDS: MORPHINE SULFATE 4 MG/ML, 1ML IVPush PRN ×2 (03:40→03:55)
[2017-09-17] MEDS ORDERED: TRAZ50TA18 PO (05:02)
[2017-09-17 05:11] VITALS: BP 185/96
[2017-09-17] MEDS ORDERED: ENALAPRILAT 1.25 MG/ML, 2ML IVPush PRN (05:30)
[2017-09-17] MEDS ORDERED: hydrALAzine 20 MG/ML, 1ML IVPush PRN (05:30)
[2017-09-17] MEDS ORDERED: TRAZODONE 50MG TABLET PO PRN (05:30)
[2017-09-17] MEDS ORDERED: ONDANSETRON 2MG/ML, 2ML IVPush PRN (05:30)
[2017-09-17] MEDS ORDERED: morphine SULFATE 10 MG/ML, 1ML IVPush PRN (05:30)
[2017-09-17] MEDS: ENOXAPARIN 40 MG/0.4 ML SQ SCH (05:30)
[2017-09-17] MEDS ORDERED: hydrALAzine 20 MG/ML, 1ML IV PRN (05:30)
[2017-09-17] MEDS: ASPIRIN 81 MG TABLET EC PO SCH (05:45)
[2017-09-17] MEDS ORDERED: ALBUTEROL/IPRATROPIUM 2.5MG/0.5MG, 3 ML NPPB PRN (06:00)
[2017-09-17 06:01] LABS: BASOPHILS % (AUTO) 1 % (0-1); EOSINOPHILS # (AUTO) 0.17 x10^3/uL (0-0.4); EOSINOPHILS % (AUTO) 2 % (1-7); LYMPHOCYTES # (AUTO) 2.29 x10^3/uL (1-3.4); LYMPHOCYTES % (AUTO) 25 % (22-44); MD NO; MEAN CORPUSCULAR VOLUME 90.9 fL (80-100); MEAN PLATELET VOLUME 9.2 fL (7.4-10.4); MONOCYTES # (AUTO) 0.77 x10^3/uL (0.2-0.8); MONOCYTES % (AUTO) 8 % (2-9); NEUTROPHILS # (AUTO) 5.82 x10^3/uL (1.8-6.8); NEUTROPHILS % (AUTO) 64 % (42-75); PLATELET COUNT 248 x10^3/uL (130-400); RED BLOOD COUNT 4.59 x10^6/uL (3.82-5.3); RED CELL DISTRIBUTION WIDTH 16.9 % (9.6-15.2)
[2017-09-17] MEDS: SODIUM CHLORIDE 0.9% 1,000 ML IV SCH ×2 (06:05→16:23)
[2017-09-17 06:07] VITALS: BP 143/79
[2017-09-17 06:13] LABS: ALANINE AMINOTRANSFERASE 34 U/L (12-78); ALBUMIN 3.6 g/dL (3.4-5.0); ANION GAP 6 mmol/L (5-15); CALCIUM 8.5 mg/dL (8.5-10.1); CHLORIDE 102 mmol/L (98-107)
[2017-09-17 06:18] LABS: ALKALINE PHOSPHATASE 70 U/L (45-117); BILIRUBIN,TOTAL 0.4 mg/dL (0.2-1.0); CREATININE 0.83 mg/dL (0.55-1.02); TOTAL PROTEIN 7.1 g/dL (6.4-8.2); TROPONIN I 0.222 ng/mL (0.000-0.045)
[2017-09-17] MEDS ORDERED: IPRATROPIUM 0.5 MG/2.5 ML INHA NPPB SCH (07:00)
[2017-09-17 07:43] VITALS: BP 145/82
[2017-09-17] MEDS ORDERED: ATENOLOL 50 MG TABLET PO SCH (09:00)
[2017-09-17] MEDS: AMLODIPINE 5 MG TABLET PO SCH (09:09)
[2017-09-17] MEDS: FLUTICASONE/VILANTEROL 200-25MCG/INH INH SCH (10:14)
[2017-09-17 12:08] LABS: TROPONIN I 0.214 ng/mL (0.000-0.045)
[2017-09-17] MEDS ORDERED: KETOROLAC 30 MG/1 ML IVPush PRN (14:00)
[2017-09-17 14:23] VITALS: BP 161/81
[2017-09-17] MEDS: ENALAPRIL 20MG TABLET PO SCH (16:26)
[2017-09-17 20:44] VITALS: BP 152/79
[2017-09-17] MEDS ORDERED: MONTELUKAST 10 MG TABLET PO SCH (21:00)
[2017-09-17] MEDS ORDERED: ATORVASTATIN 20 MG TABLET PO SCH (21:00)
[2017-09-18 02:47] VITALS: BP 161/86
[2017-09-18] MEDS: ENOXAPARIN 40 MG/0.4 ML SQ SCH (05:30)
[2017-09-18] MEDS: SODIUM CHLORIDE 0.9% 1,000 ML IV SCH ×2 (05:31→10:59)
[2017-09-18] MEDS: ASPIRIN 81 MG TABLET EC PO SCH (05:32)
[2017-09-18 07:00] VITALS: BP 173/91
[2017-09-18] MEDS ORDERED: ENAL20TA PO (08:39)
[2017-09-18] MEDS ORDERED: AMLO5TAB2 PO (08:39)
[2017-09-18] MEDS ORDERED: METO25TA35 PO (08:39)
[2017-09-18] MEDS ORDERED: CETIRIZINE 10 MG TABLET PO SCH (09:00)
[2017-09-18] MEDS ORDERED: METOPROLOL TARTRATE 25 MG TABLET PO SCH (09:00)
[2017-09-18] MEDS: FLUTICASONE/VILANTEROL 200-25MCG/INH INH SCH (09:00)
[2017-09-18] MEDS: AMLODIPINE 5 MG TABLET PO SCH (09:51)
[2017-09-18] MEDS: ENALAPRIL 20MG TABLET PO SCH (09:51)
== END 2017-09-18 12:38 | disposition home or self-care (01) | DRG 305 ==
LOC: ED 03:29 → EDIP 03:40 → 5SO 04:39 → DCLOUNGE 09-18 12:07
PROVIDERS: ADMIT Hospitalist; ATTEND Hospitalist
DX: I10 Essential (primary) hypertension (principal); I24.8 Other forms of acute ischemic heart disease; E78.5 Hyperlipidemia, unspecified; I25.2 Old myocardial infarction; J44.9 Chronic obstructive pulmonary disease, unspecified; Z91.14 Patient's other noncompliance with medication regimen; Z91.19 Patient's noncompliance with other medical treatment and regimen; F17.210 Nicotine dependence, cigarettes, uncomplicated
CPT/HCPCS: 36415; 71046; 80053; 81003; 83735; 84100; 84436; 84443; 84484; 85025; 93005; 96374; 96375; J0360; J2270; J7030

== ENCOUNTER 2017-09-25 23:26 | Emergency (ER) | payer MEDICAID ==
[~2017-09-25] VITALS: Ht 165.1 cm; Wt 55.0 kg
[~2017-09-25 23:26] MED LIST changes: +METO25TA35 PO; +TRAZ50TA18 PO
[2017-09-25 23:59] LABS: BASOPHILS # (AUTO) 0.06 x10^3/uL (0-0.1); BASOPHILS % (AUTO) 1 % (0-1); EOSINOPHILS # (AUTO) 0.11 x10^3/uL (0-0.4); EOSINOPHILS % (AUTO) 1 % (1-7); LYMPHOCYTES # (AUTO) 1.85 x10^3/uL (1-3.4); LYMPHOCYTES % (AUTO) 24 % (22-44); MD NO; MEAN CORPUSCULAR HEMOGLOBIN 29.6 pg (27.0-34.8); MEAN CORPUSCULAR HGB CONC 32.8 g/dL (32.4-35.8); MEAN CORPUSCULAR VOLUME 90.1 fL (80-100); MONOCYTES # (AUTO) 0.84 x10^3/uL (0.2-0.8); MONOCYTES % (AUTO) 11 % (2-9); NEUTROPHILS # (AUTO) 4.75 x10^3/uL (1.8-6.8); NEUTROPHILS % (AUTO) 63 % (42-75); PLATELET COUNT 250 x10^3/uL (130-400); RED BLOOD COUNT 4.41 x10^6/uL (3.82-5.3); RED CELL DISTRIBUTION WIDTH 16.1 % (9.6-15.2)
[2017-09-26 00:10] LABS: ALBUMIN 3.3 g/dL (3.4-5.0); ANION GAP 7 mmol/L (5-15); CALCIUM 8.4 mg/dL (8.5-10.1); CHLORIDE 106 mmol/L (98-107); CREATININE 0.72 mg/dL (0.55-1.02)
[2017-09-26] MEDS ORDERED: POTASSIUM CHLORIDE 20 MEQ TAB.ER.PRT PO ONE (00:30)
[2017-09-26] MEDS ORDERED: POTASSIUM CHLORIDE 20 MEQ TAB.ER.PRT ONE (00:36)
[2017-09-26 00:37] VITALS: BP 158/76
[2017-09-26] MEDS ORDERED: ALBUTEROL SULFATE 2.5 MG/3 ML ONE (00:59)
[2017-09-26] MEDS ORDERED: ALBUTEROL SULFATE 2.5 MG/3 ML NPPB ONE (01:00)
== END 2017-09-26 01:17 | disposition home or self-care (01) ==
LOC: ED 23:59
DX: I10 Essential (primary) hypertension (principal); Z76.0 Encounter for issue of repeat prescription; E87.6 Hypokalemia; F17.200 Nicotine dependence, unspecified, uncomplicated; J44.9 Chronic obstructive pulmonary disease, unspecified; M19.90 Unspecified osteoarthritis, unspecified site; Z59.0 Homelessness
CPT/HCPCS: 36415; 80048; 82040; 85025; 93005; 94640; 99285; J7613

== ENCOUNTER 2017-12-17 01:03 | Emergency (ER) | payer MEDICAID ==
[~2017-12-17] VITALS: Ht 165.1 cm; Wt 45.9 kg
[2017-12-17 02:49] VITALS: BP 143/76
== END 2017-12-17 02:51 | disposition home or self-care (01) ==
LOC: ED 01:56
DX: G89.11 Acute pain due to trauma (principal); M79.645 Pain in left finger(s)
CPT/HCPCS: 99284

== ENCOUNTER 2017-12-23 20:17 | Emergency (ER) | payer MEDICAID ==
[~2017-12-23] VITALS: Ht 165.1 cm; Wt 48.9 kg
[2017-12-23 20:19] VITALS: BP 148/80
== END 2017-12-23 22:06 | disposition home or self-care (01) ==
LOC: ED 21:26
DX: S63.502A Unspecified sprain of left wrist, initial encounter (principal); I10 Essential (primary) hypertension; I25.2 Old myocardial infarction; I24.9 Acute ischemic heart disease, unspecified; W22.8XXA Striking against or struck by other objects, initial encounter; Y93.89 Activity, other specified; Y92.009 Unspecified place in unspecified non-institutional (private) residence as the place of occurrence of the external cause; Y99.8 Other external cause status
CPT/HCPCS: 99284

== ENCOUNTER 2018-03-28 00:41 | Emergency (ER) | payer MEDICAID ==
[~2018-03-28] VITALS: Ht 165.1 cm; Wt 110.0 kg
[~2018-03-28 00:41] MED LIST changes: -AMLO5TAB2 PO; +AMLO5TAB7 PO; -IPRA3AMP NPPB; +IPRA3AMP30 NPPB; +TRAZ-136 PO; -TRAZ50TA18 PO
[2018-03-28 01:10] VITALS: BP 165/95
== END 2018-03-28 01:12 | disposition home or self-care (01) ==
LOC: ED 01:10
DX: I10 Essential (primary) hypertension (principal); Z76.0 Encounter for issue of repeat prescription; I25.2 Old myocardial infarction; J44.9 Chronic obstructive pulmonary disease, unspecified; M19.90 Unspecified osteoarthritis, unspecified site
CPT/HCPCS: 99281

== ENCOUNTER 2018-04-09 03:41 | Observation (INO) | payer MEDICAID ==
[~2018-04-09] VITALS: Ht 165.1 cm; Wt 47.8 kg
[2018-04-09] MEDS ORDERED: AMLODIPINE 5 MG TABLET ONE (04:11)
[2018-04-09] MEDS ORDERED: AMLODIPINE 5 MG TABLET PO ONE (04:30)
[2018-04-09] MEDS ORDERED: METOPROLOL TARTRATE 50 MG TABLET PO ONE (04:30)
[2018-04-09] MEDS ORDERED: ENALAPRIL 20MG TABLET PO ONE (04:30)
[2018-04-09 04:56] LABS: BASOPHILS # (AUTO) 0.05 x10^3/uL (0-0.1); BASOPHILS % (AUTO) 1 % (0-1); EOSINOPHILS # (AUTO) 0.22 x10^3/uL (0-0.4); EOSINOPHILS % (AUTO) 2 % (1-7); LYMPHOCYTES % (AUTO) 17 % (22-44); MD NO; MEAN CORPUSCULAR HEMOGLOBIN 30.6 pg (27.0-34.8); MEAN CORPUSCULAR HGB CONC 33.3 g/dL (32.4-35.8); MEAN CORPUSCULAR VOLUME 91.7 fL (80-100); MEAN PLATELET VOLUME 9.1 fL (7.4-10.4); MONOCYTES # (AUTO) 0.76 x10^3/uL (0.2-0.8); MONOCYTES % (AUTO) 8 % (2-9); NEUTROPHILS # (AUTO) 6.57 x10^3/uL (1.8-6.8); NEUTROPHILS % (AUTO) 71 % (42-75); PLATELET COUNT 219 x10^3/uL (130-400); RED BLOOD COUNT 4.51 x10^6/uL (3.82-5.3); RED CELL DISTRIBUTION WIDTH 14.5 % (9.6-15.2)
[2018-04-09] MEDS ORDERED: METOPROLOL TARTRATE 25 MG TABLET ONE (05:04)
[2018-04-09 05:08] LABS: ALBUMIN 3.5 g/dL (3.4-5.0); ANION GAP 8 mmol/L (5-15); CALCIUM 8.8 mg/dL (8.5-10.1); CHLORIDE 105 mmol/L (98-107); CREATININE 0.62 mg/dL (0.55-1.02)
[2018-04-09 05:13] LABS: TROPONIN I 0.172 ng/mL (0.000-0.045)
[2018-04-09] MEDS ORDERED: LABETALOL 5MG/ML, 20ML IVPush ONE (05:30)
[2018-04-09] MEDS ORDERED: POTASSIUM CHLORIDE 20 MEQ TAB.ER.PRT PO ONE (05:30)
[2018-04-09] MEDS ORDERED: POTASSIUM CHLORIDE 20 MEQ TAB.ER.PRT ONE (05:38)
[2018-04-09] MEDS ORDERED: LABETALOL 5MG/ML, 20ML ONE (05:38)
[2018-04-09] MEDS ORDERED: hydrALAzine 20 MG/ML, 1ML IV ONE (06:00)
[2018-04-09] MEDS ORDERED: TRAZODONE 50MG TABLET PO PRN (08:30)
[2018-04-09] MEDS ORDERED: DOCUSATE 100 MG CAPSULE PO PRN (08:30)
[2018-04-09] MEDS ORDERED: hydrALAzine 20 MG/ML, 1ML IVPush PRN (08:30)
[2018-04-09] MEDS ORDERED: GUAIFENESIN/DM 200-20MG, 10ML UDC PO PRN (08:30)
[2018-04-09] MEDS ORDERED: LABETALOL 5MG/ML, 20ML IVPush PRN (08:30)
[2018-04-09] MEDS ORDERED: ONDANSETRON 2MG/ML, 2ML IVPush PRN (08:30)
[2018-04-09 08:40] VITALS: BP 168/91
[2018-04-09] MEDS: ENALAPRIL 20MG TABLET PO SCH (09:00)
[2018-04-09] MEDS: AMLODIPINE 5 MG TABLET PO SCH (09:00)
[2018-04-09] MEDS: METOPROLOL TARTRATE 25 MG TABLET PO SCH ×2 (09:00→20:26)
[2018-04-09] MEDS: ENOXAPARIN 40 MG/0.4 ML SQ SCH (09:21)
[2018-04-09] MEDS: POTASSIUM CHLORIDE 20 MEQ TAB.ER.PRT PO SCH ×2 (09:37→14:14)
[2018-04-09] MEDS: HYDROCHLOROTHIAZIDE 12.5 MG CAPSULE PO SCH (09:37)
[2018-04-09] MEDS ORDERED: ALBUTEROL/IPRATROPIUM 2.5MG/0.5MG, 3 ML NEB SCH (11:00)
[2018-04-09 11:32] VITALS: BP 138/71
[2018-04-09] MEDS: ACETAMINOPHEN 325 MG TABLET PO PRN ×2 (12:45→18:26)
[2018-04-09 12:49] LABS: TROPONIN I 0.184 ng/mL (0.000-0.045)
[2018-04-09] MEDS: FLUTICASONE/VILANTEROL 200-25MCG/INH INH SCH (13:02)
[2018-04-09 13:09] VITALS: BP 155/82
[2018-04-09] MEDS ORDERED: ALBUTEROL/IPRATROPIUM 2.5MG/0.5MG, 3 ML NEB PRN (15:00)
[2018-04-09 18:20] LABS: TROPONIN I 0.184 ng/mL (0.000-0.045)
[2018-04-09 18:27] VITALS: BP 151/78
[2018-04-09 19:48] VITALS: BP 144/80
[2018-04-09] MEDS ORDERED: NICOTINE 7 MG/24 HR PATCH.TD24 TD SCH (20:30)
[2018-04-09] MEDS ORDERED: MONTELUKAST 10 MG TABLET PO SCH (21:00)
[2018-04-09] MEDS ORDERED: ATORVASTATIN 20 MG TABLET PO SCH (21:00)
[2018-04-10 02:00] VITALS: BP 148/75
[2018-04-10] MEDS: ACETAMINOPHEN 325 MG TABLET PO PRN (04:51)
[2018-04-10 05:20] LABS: BASOPHILS # (AUTO) 0.03 x10^3/uL (0-0.1); BASOPHILS % (AUTO) 0 % (0-1); EOSINOPHILS % (AUTO) 5 % (1-7); LYMPHOCYTES # (AUTO) 2.21 x10^3/uL (1-3.4); LYMPHOCYTES % (AUTO) 34 % (22-44); MD NO; MEAN CORPUSCULAR HEMOGLOBIN 30.7 pg (27.0-34.8); MEAN CORPUSCULAR HGB CONC 33.1 g/dL (32.4-35.8); MEAN CORPUSCULAR VOLUME 92.7 fL (80-100); MEAN PLATELET VOLUME 9.4 fL (7.4-10.4); MONOCYTES % (AUTO) 11 % (2-9); NEUTROPHILS # (AUTO) 3.33 x10^3/uL (1.8-6.8); NEUTROPHILS % (AUTO) 51 % (42-75); PLATELET COUNT 201 x10^3/uL (130-400); RED BLOOD COUNT 3.94 x10^6/uL (3.82-5.3); RED CELL DISTRIBUTION WIDTH 15.2 % (9.6-15.2)
[2018-04-10 05:32] LABS: ANION GAP 7 mmol/L (5-15); CHLORIDE 106 mmol/L (98-107)
[2018-04-10 05:35] LABS: CREATININE 0.83 mg/dL (0.55-1.02)
[2018-04-10] MEDS ORDERED: ASPIRIN 81 MG TABLET EC PO SCH (06:00)
[2018-04-10] MEDS ORDERED: POTASSIUM CHLORIDE 20 MEQ TAB.ER.PRT PO ONE (07:30)
[2018-04-10 08:09] LABS: TROPONIN I 0.161 ng/mL (0.000-0.045)
[2018-04-10 08:20] VITALS: BP 157/87
[2018-04-10] MEDS: FLUTICASONE/VILANTEROL 200-25MCG/INH INH SCH (09:09)
[2018-04-10] MEDS: ENALAPRIL 20MG TABLET PO SCH (09:10)
[2018-04-10] MEDS: HYDROCHLOROTHIAZIDE 12.5 MG CAPSULE PO SCH (09:10)
[2018-04-10] MEDS: ENOXAPARIN 40 MG/0.4 ML SQ SCH (09:11)
[2018-04-10] MEDS: AMLODIPINE 5 MG TABLET PO SCH (09:11)
[2018-04-10] MEDS: METOPROLOL TARTRATE 25 MG TABLET PO SCH (09:12)
[2018-04-10] MEDS ORDERED: METO25TA35 PO (10:07)
[2018-04-10] MEDS ORDERED: ASPI-621 PO (10:07)
[2018-04-10] MEDS ORDERED: ATOR20TA9 PO (10:07)
[2018-04-10] MEDS ORDERED: FLUT1BLS INH (10:07)
[2018-04-10] MEDS ORDERED: AMLO5TAB7 PO (10:07)
[2018-04-10] MEDS ORDERED: MONT10TA9 PO (10:07)
[2018-04-10] MEDS ORDERED: IPRA4AER INH (10:07)
[2018-04-10] MEDS ORDERED: ENAL20TA PO (10:07)
[2018-04-10] MEDS ORDERED: HYDR12.53 PO (10:07)
[2018-04-10 12:45] VITALS: BP 149/78
== END 2018-04-10 13:04 | disposition home or self-care (01) ==
LOC: ED 04:16 → EDIP 07:16 → INTOOBSV 07:16 → 5SO 08:29 → DCLOUNGE 04-10 12:56
PROVIDERS: ADMIT Internal Medicine; ATTEND Internal Medicine
DX: R07.9 Chest pain, unspecified (principal); I10 Essential (primary) hypertension; E78.5 Hyperlipidemia, unspecified; E87.6 Hypokalemia; I25.2 Old myocardial infarction; J44.9 Chronic obstructive pulmonary disease, unspecified; R79.89 Other specified abnormal findings of blood chemistry; F17.210 Nicotine dependence, cigarettes, uncomplicated; Z79.82 Long term (current) use of aspirin; Z79.899 Other long term (current) drug therapy; Z91.14 Patient's other noncompliance with medication regimen
CPT/HCPCS: 36415; 71045; 73130; 80048; 82040; 83735; 84484; 85025; 93005; 94640; 96372; 96374; 96375; 99285; G0378; J0360; J1650; J7620; 99291

== ENCOUNTER 2018-04-21 23:16 | Emergency (ER) | payer MEDICAID ==
[~2018-04-21] VITALS: Ht 165.1 cm; Wt 47.0 kg
[~2018-04-21 23:16] MED LIST changes: +HYDR12.53 PO
[2018-04-22 00:06] LABS: BASOPHILS # (AUTO) 0.04 x10^3/uL (0-0.1); BASOPHILS % (AUTO) 1 % (0-1); EOSINOPHILS % (AUTO) 2 % (1-7); LYMPHOCYTES # (AUTO) 1.51 x10^3/uL (1-3.4); LYMPHOCYTES % (AUTO) 18 % (22-44); MD NO; MEAN CORPUSCULAR HGB CONC 33.1 g/dL (32.4-35.8); MEAN CORPUSCULAR VOLUME 90.6 fL (80-100); MEAN PLATELET VOLUME 8.8 fL (7.4-10.4); MONOCYTES # (AUTO) 0.66 x10^3/uL (0.2-0.8); MONOCYTES % (AUTO) 8 % (2-9); NEUTROPHILS % (AUTO) 71 % (42-75); PLATELET COUNT 234 x10^3/uL (130-400); RED BLOOD COUNT 4.27 x10^6/uL (3.82-5.3); RED CELL DISTRIBUTION WIDTH 14.9 % (9.6-15.2)
[2018-04-22 00:15] LABS: ALBUMIN 3.2 g/dL (3.4-5.0); ANION GAP 7 mmol/L (5-15); CALCIUM 8.2 mg/dL (8.5-10.1); CHLORIDE 102 mmol/L (98-107); CREATININE 0.71 mg/dL (0.55-1.02)
[2018-04-22 00:21] LABS: TROPONIN I 0.199 ng/mL (0.000-0.045)
[2018-04-22] MEDS ORDERED: IBUPROFEN 800 MG TABLET ONE (00:57)
[2018-04-22] MEDS ORDERED: IBUPROFEN 200 MG TABLET PO ONE (01:00)
[2018-04-22 01:07] VITALS: BP 184/100
== END 2018-04-22 01:09 | disposition home or self-care (01) ==
LOC: ED 23:48
DX: R07.89 Other chest pain (principal); M25.511 Pain in right shoulder; I10 Essential (primary) hypertension; I25.2 Old myocardial infarction; J44.9 Chronic obstructive pulmonary disease, unspecified; R79.89 Other specified abnormal findings of blood chemistry; F17.200 Nicotine dependence, unspecified, uncomplicated
CPT/HCPCS: 36415; 71045; 80048; 82040; 84484; 85025; 93005; 99285

== ENCOUNTER 2018-06-24 21:09 | Emergency (ER) | payer MEDICAID ==
[~2018-06-24] VITALS: Ht 165.1 cm; Wt 50.0 kg
[~2018-06-24 21:09] MED LIST changes: +AMLO-150 PO; -AMLO5TAB7 PO; -ASPI-621 PO; +ASPI81TA45 PO; +ATOR20TA37 PO; -ATOR20TA9 PO; +HYDR12.517 PO; -HYDR12.53 PO; -TRAZ-136 PO; +TRAZ50TA66 PO
[2018-06-24] MEDS ORDERED: DICYCLOMINE 20 MG TABLET PO ONE (21:30)
[2018-06-24] MEDS ORDERED: FAMOTIDINE 20 MG TABLET PO ONE (21:30)
[2018-06-24] MEDS ORDERED: ONDANSETRON ODT 4 MG PO ONE (21:30)
[2018-06-24] MEDS ORDERED: PANTOPRAZOLE 20MG TABLET PO ONE (21:30)
[2018-06-24 21:42] LABS: BASOPHILS # (AUTO) 0.06 x10^3/uL (0-0.1); BASOPHILS % (AUTO) 1 % (0-1); EOSINOPHILS # (AUTO) 0.42 x10^3/uL (0-0.4); EOSINOPHILS % (AUTO) 5 % (1-7); LYMPHOCYTES # (AUTO) 1.89 x10^3/uL (1-3.4); LYMPHOCYTES % (AUTO) 24 % (22-44); MD NO; MEAN CORPUSCULAR HEMOGLOBIN 30.1 pg (27.0-34.8); MEAN CORPUSCULAR HGB CONC 33.5 g/dL (32.4-35.8); MEAN PLATELET VOLUME 8.2 fL (7.4-10.4); MONOCYTES # (AUTO) 0.63 x10^3/uL (0.2-0.8); MONOCYTES % (AUTO) 8 % (2-9); NEUTROPHILS % (AUTO) 62 % (42-75); PLATELET COUNT 248 x10^3/uL (130-400); RED BLOOD COUNT 4.18 x10^6/uL (3.82-5.3); RED CELL DISTRIBUTION WIDTH 17.3 % (9.6-15.2)
[2018-06-24 21:49] LABS: ALANINE AMINOTRANSFERASE 35 U/L (12-78); ALBUMIN 3.5 g/dL (3.4-5.0); ANION GAP 4 mmol/L (5-15); CALCIUM 8.3 mg/dL (8.5-10.1); CHLORIDE 102 mmol/L (98-107)
[2018-06-24 21:51] LABS: ALKALINE PHOSPHATASE 74 U/L (45-117); BILIRUBIN,TOTAL 0.3 mg/dL (0.2-1.0); TOTAL PROTEIN 6.7 g/dL (6.4-8.2)
[2018-06-24] MEDS ORDERED: ONDANSETRON ODT 4 MG ONE (22:15)
[2018-06-24] MEDS ORDERED: PANTOPRAZOLE 20MG TABLET ONE (22:15)
[2018-06-24] MEDS ORDERED: DICYCLOMINE 20 MG TABLET ONE (22:15)
[2018-06-24] MEDS ORDERED: FAMOTIDINE 20 MG TABLET ONE (22:16)
--- NOTE | 2018-06-24 22:20 | NUR ---
PT RESTING IN BED, NAD AT THIS TIME. PT MEDICATED PER EMAR FOR PAIN AND NAUSEA. PT AWARE OF NEED FOR UA. PT GIVEN WATER PER REQUEST TO HELP BE ABLE TO VOID. PT BP WITH MINIMAL IMPROVEMENT, SEE CHARTED. BILAT BEDRAILS UP. CALL LIGHT WITHIN REACH.
[2018-06-24] MEDS ORDERED: POTASSIUM CHLORIDE 20 MEQ TAB.ER.PRT PO ONE (22:30)
[2018-06-24 22:55] LABS: MICROSCOPIC NOT IND
[2018-06-24] MEDS ORDERED: POTASSIUM CHLORIDE 20 MEQ TAB.ER.PRT ONE (22:56)
[2018-06-24 23:00] LABS: CULTURE INDICATED? NO
[2018-06-24 23:07] VITALS: BP 185/96
== END 2018-06-24 23:27 | disposition home or self-care (01) ==
LOC: ED 22:07
DX: K52.29 Other allergic and dietetic gastroenteritis and colitis (principal); I10 Essential (primary) hypertension; I25.2 Old myocardial infarction; J44.9 Chronic obstructive pulmonary disease, unspecified; I24.9 Acute ischemic heart disease, unspecified; R11.2 Nausea with vomiting, unspecified; E87.6 Hypokalemia
CPT/HCPCS: 36415; 80053; 81003; 83690; 85025; 93005; 99284; Q0162

== ENCOUNTER 2018-07-22 20:30 | Emergency (ER) | payer MEDICAID ==
[~2018-07-22] VITALS: Ht 165.1 cm; Wt 47.0 kg
[2018-07-22] MEDS ORDERED: IBUP-1223 PO (21:06)
[2018-07-22] MEDS ORDERED: TRAZ50TA66 PO (21:10)
[2018-07-22] MEDS ORDERED: METHOCARBAMOL 750 MG TABLET ONE (21:20)
--- NOTE | 2018-07-22 21:20 | NUR ---
KELLY. REPORT RECEIVED EMS. PT HAS HEAD-INJURY TODAY. PT C/O STANDING ON THE BUNK BED AND HITTING HEAD WITH IT. PT C/O ALL OVER THE HEAD PAIN RADIATING TO NECK. NO LACERATION/LOC. PT'S AOX4. RESPS EVEN AND UNLABORED. BP/SPO2 MONITORS IN PLACE. CALL LIGHT WITHIN REACH.
--- NOTE | 2018-07-22 21:24 | NUR ---
EDMD AT BEDSIDE TO ASSESS AT THIS TIME.
--- NOTE | 2018-07-22 21:25 | NUR ---
PT MEDICATED PER EMAR. PT TOLERATED WELL. PT AOX4. RESPS EVEN AND UNLABORED. BP/SPO2 MONITORS IN PLACE. CALL LIGHT WITHIN REACH.
[2018-07-22] MEDS ORDERED: METHOCARBAMOL 750 MG TABLET PO ONE (21:30)
[2018-07-22 21:55] VITALS: BP 179/95
--- NOTE | 2018-07-22 22:04 | NUR ---
PT GIVEN TO DC INSTRUCTIONS AND SCRIPTS. PT EDUCATED REGARDING DC MEDICATIONS WHICH ARE ALBUTEROL AND SHERLEY. PT AMB TO DC WITH STEADY GAIT. NO ACUTE DISTRESS AT DC.
== END 2018-07-22 22:05 | disposition home or self-care (01) ==
LOC: ED 20:39
DX: S09.8XXA Other specified injuries of head, initial encounter (principal); I25.2 Old myocardial infarction; J44.9 Chronic obstructive pulmonary disease, unspecified; I10 Essential (primary) hypertension; X58.XXXA Exposure to other specified factors, initial encounter; Y93.89 Activity, other specified; Y92.89 Other specified places as the place of occurrence of the external cause; Y99.8 Other external cause status
CPT/HCPCS: 99283

== ENCOUNTER 2018-08-04 00:38 | Emergency (ER) | payer MEDICAID ==
[~2018-08-04] VITALS: Ht 165.1 cm; Wt 49.0 kg
[~2018-08-04 00:38] MED LIST changes: +IBUP-1223 PO
--- NOTE | 2018-08-04 00:52 | NUR ---
PT UP TO RR
--- NOTE | 2018-08-04 01:01 | NUR ---
PT HERE WITH COMPLAINTS OF HAVING CONCUSSION FOR WHICH SHE WAS SEEN AT [facility] ON THE Jul AFTER [facility] . HERE TONIGHT WITH COMPLAINTS BLURRED VISION THAT STARTED TODAY, PT WAS GIVEN SCRIPT FOR BLOOD PRESSURE MEDS ON the AND HAS BEEN UNABLE TO FILL. ERP AT BEDSIDE FOR EVAL
[2018-08-04] MEDS ORDERED: ALBU0.63 NEB (01:11)
[2018-08-04] MEDS ORDERED: LISI-170 PO (01:11)
[2018-08-04] MEDS ORDERED: AMLODIPINE 5 MG TABLET ONE (01:15)
[2018-08-04] MEDS ORDERED: ALBUTEROL/IPRATROPIUM 2.5MG/0.5MG, 3 ML ONE (01:28)
[2018-08-04] MEDS ORDERED: ALBUTEROL/IPRATROPIUM 2.5MG/0.5MG, 3 ML NPPB ONE (01:30)
[2018-08-04] MEDS ORDERED: MONTELUKAST 10 MG TABLET PO ONE (01:30)
[2018-08-04] MEDS ORDERED: ENALAPRIL 20MG TABLET PO ONE (01:30)
[2018-08-04] MEDS ORDERED: AMLODIPINE 5 MG TABLET PO ONE (01:30)
[2018-08-04 01:57] VITALS: BP 176/89
[2018-08-04] MEDS ORDERED: ENALAPRIL 20MG TABLET PO SCH (09:00)
[2018-08-04] MEDS ORDERED: MONTELUKAST 10 MG TABLET PO SCH (21:00)
== END 2018-08-04 03:03 | disposition home or self-care (01) ==
LOC: ED 00:53
DX: H53.8 Other visual disturbances (principal); J44.9 Chronic obstructive pulmonary disease, unspecified; I10 Essential (primary) hypertension; I67.4 Hypertensive encephalopathy; I24.9 Acute ischemic heart disease, unspecified; F17.200 Nicotine dependence, unspecified, uncomplicated; I25.2 Old myocardial infarction; Z76.0 Encounter for issue of repeat prescription; Z72.9 Problem related to lifestyle, unspecified; Z91.018 Allergy to other foods; Z88.2 Allergy status to sulfonamides; Z88.6 Allergy status to analgesic agent; Z88.8 Allergy status to other drugs, medicaments and biological substances; Z75.9 Unspecified problem related to medical facilities and other health care; Z91.14 Patient's other noncompliance with medication regimen; Z63.8 Other specified problems related to primary support group; Z87.19 Personal history of other diseases of the digestive system
CPT/HCPCS: 94640; 99284; J7620

== ENCOUNTER 2018-08-14 04:35 | Emergency (ER) | payer MEDICAID ==
[~2018-08-14] VITALS: Ht 165.1 cm; Wt 46.0 kg
[~2018-08-14 04:35] MED LIST changes: +ALBU0.63 NEB; +LISI-170 PO
[2018-08-14] MEDS ORDERED: ASPIRIN 81 MG TABLET CHEW PO ONE (05:30)
[2018-08-14] MEDS ORDERED: ALBUTEROL/IPRATROPIUM 2.5MG/0.5MG, 3 ML NPPB ONE (05:30)
[2018-08-14 06:07] LABS: BASOPHILS # (AUTO) 0.01 x10^3/uL (0-0.1); BASOPHILS % (AUTO) 0 % (0-1); EOSINOPHILS # (AUTO) 0.62 x10^3/uL (0-0.4); EOSINOPHILS % (AUTO) 5 % (1-7); LYMPHOCYTES # (AUTO) 1.27 x10^3/uL (1-3.4); LYMPHOCYTES % (AUTO) 11 % (22-44); MD NO; MEAN CORPUSCULAR HEMOGLOBIN 29.8 pg (27.0-34.8); MEAN CORPUSCULAR HGB CONC 33.5 g/dL (32.4-35.8); MEAN PLATELET VOLUME 8.6 fL (7.4-10.4); MONOCYTES # (AUTO) 0.55 x10^3/uL (0.2-0.8); MONOCYTES % (AUTO) 5 % (2-9); NEUTROPHILS # (AUTO) 9.31 x10^3/uL (1.8-6.8); NEUTROPHILS % (AUTO) 79 % (42-75); PLATELET COUNT 346 x10^3/uL (130-400); RED BLOOD COUNT 5.08 x10^6/uL (3.82-5.3); RED CELL DISTRIBUTION WIDTH 16.4 % (9.6-15.2)
--- NOTE | 2018-08-14 06:09 | NUR ---
BP ELEVATED. AWARE.
[2018-08-14 06:12] LABS: ALBUMIN 3.7 g/dL (3.4-5.0); ANION GAP 5 mmol/L (5-15); CALCIUM 8.9 mg/dL (8.5-10.1); CHLORIDE 100 mmol/L (98-107); CREATININE 0.66 mg/dL (0.55-1.02)
[2018-08-14] MEDS ORDERED: LISINOPRIL 10 MG TABLET ONE (06:25)
[2018-08-14] MEDS ORDERED: LISINOPRIL 10 MG TABLET PO ONE (06:30)
--- NOTE | 2018-08-14 07:06 | NUR ---
Report from MARIANA Gomez.
[2018-08-14 07:18] VITALS: BP 188/109
--- NOTE | 2018-08-14 07:50 | NUR ---
PT GIVEN D/C PAPERWORK. PT AWARE TO IT [employer]. PT AMBULATED OUT OF DEPARTMENT WITH STEADY GAIT.
== END 2018-08-14 08:25 | disposition home or self-care (01) ==
LOC: ED 07:45
DX: J44.1 Chronic obstructive pulmonary disease with (acute) exacerbation (principal); I10 Essential (primary) hypertension; R51 Headache; F17.200 Nicotine dependence, unspecified, uncomplicated; Z72.9 Problem related to lifestyle, unspecified; Z75.9 Unspecified problem related to medical facilities and other health care; Z91.14 Patient's other noncompliance with medication regimen
CPT/HCPCS: 36415; 71046; 80048; 82040; 85025; 93005; 94640; 99284; J7620

== ENCOUNTER 2018-08-19 17:00 | Emergency (ER) | payer MEDICAID ==
[~2018-08-19] VITALS: Ht 160 cm; Wt 53.1 kg
--- NOTE | 2018-08-19 17:30 | NUR ---
N/V/D AFTER DRINKING TEA HERE TODAY AT THE [employer] [facility]
[2018-08-19] MEDS ORDERED: METOCLOPRAMIDE 5 MG/ML, 2ML ONE (18:21)
[2018-08-19] MEDS ORDERED: FAMOTIDINE 20 MG/2 ML ONE (18:21)
[2018-08-19] MEDS ORDERED: DICYCLOMINE 10 MG/ML, 2ML ONE (18:21)
[2018-08-19] MEDS ORDERED: METOCLOPRAMIDE 5 MG/ML, 2ML IVPush ONE (18:30)
[2018-08-19] MEDS ORDERED: DICYCLOMINE 10 MG/ML, 2ML IM ONE (18:30)
[2018-08-19] MEDS ORDERED: FAMOTIDINE 20 MG/2 ML IVPush ONE (18:30)
[2018-08-19 18:35] LABS: BASOPHILS # (AUTO) 0.01 x10^3/uL (0-0.1); BASOPHILS % (AUTO) 0 % (0-1); EOSINOPHILS # (AUTO) 0.22 x10^3/uL (0-0.4); EOSINOPHILS % (AUTO) 2 % (1-7); LYMPHOCYTES # (AUTO) 0.55 x10^3/uL (1-3.4); LYMPHOCYTES % (AUTO) 6 % (22-44); MD NO; MEAN CORPUSCULAR HEMOGLOBIN 29.7 pg (27.0-34.8); MEAN CORPUSCULAR HGB CONC 33.3 g/dL (32.4-35.8); MEAN CORPUSCULAR VOLUME 89.3 fL (80-100); MEAN PLATELET VOLUME 8.6 fL (7.4-10.4); MONOCYTES # (AUTO) 0.31 x10^3/uL (0.2-0.8); MONOCYTES % (AUTO) 3 % (2-9); NEUTROPHILS # (AUTO) 8.81 x10^3/uL (1.8-6.8); NEUTROPHILS % (AUTO) 89 % (42-75); PLATELET COUNT 303 x10^3/uL (130-400); RED BLOOD COUNT 4.74 x10^6/uL (3.82-5.3)
--- NOTE | 2018-08-19 18:47 | NUR ---
NOW WANTS A BREATHING TX ERP AWARE
[2018-08-19 18:48] LABS: ALBUMIN 3.1 g/dL (3.4-5.0); ANION GAP 4 mmol/L (5-15); CALCIUM 8.5 mg/dL (8.5-10.1); CHLORIDE 105 mmol/L (98-107)
[2018-08-19 18:51] LABS: ALANINE AMINOTRANSFERASE 28 U/L (12-78); ALKALINE PHOSPHATASE 76 U/L (45-117); BILIRUBIN,TOTAL 0.3 mg/dL (0.2-1.0); CREATININE 0.86 mg/dL (0.55-1.02); TOTAL PROTEIN 6.6 g/dL (6.4-8.2)
[2018-08-19 19:07] VITALS: BP 140/60
--- NOTE | 2018-08-19 19:09 | NUR ---
PT RESTING ON [facility] [place], MONITORS IN PLACE, CALL LIGHT WITHIN REACH. CHART UP FOR RECHECK
== END 2018-08-19 19:56 | disposition home or self-care (01) ==
LOC: ED 17:37
DX: K52.89 Other specified noninfective gastroenteritis and colitis (principal); M19.90 Unspecified osteoarthritis, unspecified site; I25.2 Old myocardial infarction; J44.9 Chronic obstructive pulmonary disease, unspecified; Z72.9 Problem related to lifestyle, unspecified
CPT/HCPCS: 36415; 80053; 83690; 85025; 96372; 96374; 96375; 99283; J0500; J2765; J3490

== ENCOUNTER 2019-06-20 02:51 | Emergency (ER) | payer MEDICAID ==
[~2019-06-20] VITALS: Ht 154.9 cm; Wt 48.0 kg
[~2019-06-20 02:51] MED LIST changes: +AZIT500T10 PO; -AZIT500T5 PO; -GUAI200T3 PO; +GUAI200T37 PO; -IBUP-1484 PO; +IBUP-1902 PO
[2019-06-20 03:04] VITALS: BP 179/93
[2019-06-20] MEDS ORDERED: IBUPROFEN 600 MG TABLET ONE (03:30)
[2019-06-20] MEDS ORDERED: IBUPROFEN 600 MG TABLET PO ONE (03:30)
== END 2019-06-20 05:02 | disposition home or self-care (01) ==
LOC: ED 03:18
DX: S50.12XA Contusion of left forearm, initial encounter (principal); I25.2 Old myocardial infarction; I10 Essential (primary) hypertension; J44.9 Chronic obstructive pulmonary disease, unspecified; F17.210 Nicotine dependence, cigarettes, uncomplicated; Y04.8XXA Assault by other bodily force, initial encounter; Y93.89 Activity, other specified; Y92.098 Other place in other non-institutional residence as the place of occurrence of the external cause; Y99.8 Other external cause status
CPT/HCPCS: 93005; 99283

== ENCOUNTER 2019-08-05 19:11 | Emergency (ER) | payer MEDICAID ==
[~2019-08-05 19:11] MED LIST changes: +MONT10TA11 PO; -MONT10TA9 PO
--- NOTE | 2019-08-05 19:55 | NUR ---
Pt ambulated to restroom
--- NOTE | 2019-08-05 21:23 | NUR ---
PATIENT REFUSED EKG, STATED, "NO YOU CAN NOT DO AN EKG, [facility] THE NEED FOR THE EKG EXPLANED TO PATIENT WITH NO EFFECT.
[2019-08-05 21:30] LABS: BASOPHILS # (AUTO) 0.03 x10^3/uL (0-0.1); BASOPHILS % (AUTO) 0 % (0-1); EOSINOPHILS # (AUTO) 0.38 x10^3/uL (0-0.4); EOSINOPHILS % (AUTO) 5 % (1-7); LYMPHOCYTES # (AUTO) 2.08 x10^3/uL (1-3.4); LYMPHOCYTES % (AUTO) 25 % (22-44); MD NO; MEAN CORPUSCULAR HEMOGLOBIN 29.2 pg (27.0-34.8); MEAN CORPUSCULAR HGB CONC 33.5 g/dL (32.4-35.8); MEAN CORPUSCULAR VOLUME 87.3 fL (80-100); MEAN PLATELET VOLUME 8.2 fL (7.4-10.4); MONOCYTES # (AUTO) 0.58 x10^3/uL (0.2-0.8); MONOCYTES % (AUTO) 7 % (2-9); NEUTROPHILS # (AUTO) 5.38 x10^3/uL (1.8-6.8); NEUTROPHILS % (AUTO) 64 % (42-75); PLATELET COUNT 254 x10^3/uL (130-400); RED BLOOD COUNT 4.61 x10^6/uL (3.82-5.3); RED CELL DISTRIBUTION WIDTH 16.4 % (9.6-15.2)
[2019-08-05 21:35] VITALS: BP 137/84
[2019-08-05 21:42] LABS: ALBUMIN 3.6 g/dL (3.4-5.0); ANION GAP 6 mmol/L (5-15); CALCIUM 8.7 mg/dL (8.5-10.1); CHLORIDE 104 mmol/L (98-107); CREATININE 0.66 mg/dL (0.55-1.02)
[2019-08-05] MEDS ORDERED: POTASSIUM CHLORIDE 20 MEQ TAB.ER.PRT PO ONE (22:30)
[2019-08-05] MEDS ORDERED: POTASSIUM CHLORIDE 20 MEQ TAB.ER.PRT ONE (23:07)
== END 2019-08-05 23:14 | disposition home or self-care (01) ==
LOC: ED 23:00
DX: I10 Essential (primary) hypertension (principal); E87.6 Hypokalemia; I25.2 Old myocardial infarction; J44.9 Chronic obstructive pulmonary disease, unspecified; I51.7 Cardiomegaly
CPT/HCPCS: 36415; 80048; 82040; 85025; 93005; 99284